=== PATIENT | female | born 1960 | race African-American/Black ===

== ENCOUNTER 2021-11-14 03:55 | Inpatient (IN) | payer BC, OTHER ==
[2021-11-09 14:49] VITALS: BMI 30.2
[2021-11-14] MEDS ORDERED: LIDOCAINE HCL 2% 100 MG/5 ML DISP.SYRIN ONE (07:15)
[2021-11-14] MEDS ORDERED: ONDANSETRON 4 MG/2 ML VIAL ONE ×2 (07:15→11:31)
[2021-11-14] MEDS ORDERED: KETOROLAC TROMETHAMINE 30 MG/1 ML VIAL ONE (07:15)
[2021-11-14] MEDS ORDERED: DEXAMETHASONE SOD PHOSPHATE 4 MG/1 ML VIAL ONE (07:15)
[2021-11-14] MEDS ORDERED: SUCCINYLCHOLINE CHLORIDE 200 MG/10 ML SYRINGE ONE (07:16)
[2021-11-14] MEDS ORDERED: ROCURONIUM BROMIDE 50 MG/5 ML SYRINGE ONE (07:16)
[2021-11-14] MEDS ORDERED: MIDAZOLAM HCL 2 MG/2 ML SINGLE DOSE VIAL ONE (07:16)
[2021-11-14] MEDS ORDERED: PROPOFOL 20 ML ONE ×2 (07:16)
[2021-11-14] MEDS ORDERED: ceFAZolin SODIUM 1 GM VIAL IVPB ONE (08:25)
[2021-11-14] MEDS ORDERED: ceFAZolin SODIUM 1 GM VIAL ONE (08:26)
[2021-11-14] MEDS ORDERED: DESFLURANE GAS 240 ML BOTTLE IH ONE (11:16)
[2021-11-14] MEDS ORDERED: PROMETHAZINE HCL 25 MG/1 ML VIAL IVPUSH PRN (12:35)
[2021-11-14] MEDS ORDERED: ONDANSETRON 4 MG/2 ML VIAL IVPUSH PRN (12:35)
[2021-11-14] MEDS ORDERED: KETOROLAC TROMETHAMINE 30 MG/1 ML VIAL IVPUSH ONE (12:36)
[2021-11-14] MEDS ORDERED: FENTANYL CITRATE/PF 50 MCG/ML VIAL ONE (13:06)
[2021-11-14] MEDS: LACTATED RINGERS SOLUTION 1,000 ML IV SCH (14:00)
[2021-11-14] MEDS: CEFAZOLIN 2 GM in DEXTROSE 5%-WATER 100 ML IVPB SCH (18:00)
[2021-11-15] MEDS: LACTATED RINGERS SOLUTION 1,000 ML IV SCH (02:18)
[2021-11-15] MEDS: CEFAZOLIN 2 GM in DEXTROSE 5%-WATER 100 ML IVPB SCH (02:19)
[2021-11-15] MEDS ORDERED: IBUPROFEN 600 MG TABLET (FP) PO PRN (07:45)
[2021-11-15] MEDS ORDERED: ACETAMINOPHEN 325 MG TABLET (FP) PO PRN ×2 (07:46→22:34)
[2021-11-15 08:22] LABS: EOS % 0.1 % (0-4.5); HEMATOCRIT 31.2 % (32.4-45.2); HEMOGLOBIN 10.3 GM/dL (10.7-15.3); LYMPH % 17.4 % (8-40); MCH 26.4 pg (25.7-33.7); MCHC 32.9 g/dl (32.0-36.0); MEAN CELL VOLUME 80.1 fl (80-96); MEAN PLT VOLUME 8.9 fl (7.5-11.1); MONO % 11.9 % (3.8-10.2); NEUT % 70.6 % (42.8-82.8); PLATELET COUNT 197 10^3/uL (134-434); RDW 16.5 % (11.6-15.6); WHITE BLOOD COUNT 10.1 K/mm3 (4.0-10.0)
[2021-11-15 10:23] LABS: BLOOD UREA NITROGEN 10.8 mg/dL (7-18); CALCIUM 8.5 mg/dL (8.5-10.1)
[2021-11-15 10:26] LABS: CREATININE 0.6 mg/dL (0.55-1.3)
[2021-11-15 10:28] LABS: BILIRUBIN,TOTAL 0.9 mg/dL (0.2-1); TOT PROT 5.6 g/dl (6.4-8.2)
[2021-11-15] MEDS: ASCORBIC ACID 500 MG TABLET (FP) PO SCH ×2 (10:36→22:39)
[2021-11-15] MEDS: FERROUS SO4 325 MG TABLET (FP) PO SCH ×2 (10:36→17:45)
[2021-11-15] MEDS: oxyCODONE HCL 5 MG TABLET PO PRN (22:39)
[2021-11-16] MEDS: oxyCODONE HCL 5 MG TABLET PO PRN (08:03)
[2021-11-16 08:58] VITALS: BP 113/67; PULSE 73; TEMP 97.8
[2021-11-16] MEDS: ASCORBIC ACID 500 MG TABLET (FP) PO SCH (09:34)
== END 2021-11-16 11:25 | disposition home or self-care (01) | DRG 743 ==
LOC: J2C 03:55 → J3W 14:10
PROVIDERS: ADMIT Obstetrics & Gynecology Maternal & Fetal Medicine; ATTEND Obstetrics & Gynecology Maternal & Fetal Medicine
PROC: 0DNW0ZZ Release Peritoneum, Open Approach (ICD-10-PCS; 2021-11-14)
PROC: 0UT90ZL Resection of Uterus, Supracervical, Open Approach (ICD-10-PCS; principal; 2021-11-14 08:00)
DX: D25.9 Leiomyoma of uterus, unspecified (principal); I10 Essential (primary) hypertension; K66.0 Peritoneal adhesions (postprocedural) (postinfection)
CPT/HCPCS: 36415; 80053; 85025; 88307-TC; 94760